=== PATIENT | male | born 1950 | race Caucasian/White ===

== ENCOUNTER → 2016-11-12 | Outpatient (CLI) | payer BC ==
[2016-11-12 16:52] LABS: BASOPHILS # (AUTO) 0.02 10*3/UL; BASOPHILS % (AUTO) 0.4 % (0-1); EOSINOPHILS % (AUTO) 2.7 % (0-8); HEMATOCRIT 42.6 % (42.0-52.0); HEMOGLOBIN 14.7 g/dL (14.0-18.0); IMM GRAN % (AUTO) 0.5 % (0-5); IMM GRAN# (AUTO) 0.03 10*3/UL; LYMPHOCYTES # (AUTO) 0.97 10*3/uL; LYMPHOCYTES % (AUTO) 17.5 % (10-50); MEAN CORPUSCULAR HEMOGLOBIN 31.9 PG (27-31); MEAN CORPUSCULAR HGB CONC 34.5 g/dL (33-37); MEAN PLATELET VOLUME 10.3 FL (7.4-12.2); MONOCYTES # (AUTO) 0.82 10*3/UL (0.3-0.8); MONOCYTES % (AUTO) 14.8 % (5-15); NEUTROPHILS # (AUTO) 3.56 10*3/UL; NEUTROPHILS % (AUTO) 64.1 % (50-80); RDW COEFFICIENT OF VARIATION 13.5 % (11.5-14.5); RED BLOOD COUNT 4.61 10^6/uL (4.70-6.10); WHITE BLOOD COUNT 5.55 10^3/uL (4.8-10.8)
[2016-11-12 16:58] LABS: PLATELET MORPHOLOGY COMMENT NORMAL MORPHOLOGY (NORM)
[2016-11-12 17:05] LABS: ASPARTATE AMINO TRANSFERASE 28 IU/L (21-57); BILIRUBIN,TOTAL 1.1 mg/dL (0.3-1.2); BLOOD UREA NITROGEN 11 mg/dL (7-22); CALCIUM 9.5 mg/dL (8.7-10.7); CHLORIDE 100 meq/L (98-112); EST GLOMERULAR FILTRATION > 60 (>60 ml/min/1.73m(2)); GLUCOSE 87 mg/dL (78-110); POTASSIUM 4.2 meq/L (3.8-5.2); SODIUM 138 meq/L (135-145); TOTAL PROTEIN 6.9 g/dL (6.1-8.0)
== END ==
LOC: LAB 16:37
PROVIDERS: ATTEND Internal Medicine
DX: C85.81 Other specified types of non-Hodgkin lymphoma, lymph nodes of head, face, and neck (principal)
CPT/HCPCS: 36415; 80053; 83615; 85025

== ENCOUNTER → 2017-01-02 | Outpatient (CLI) | payer BC ==
--- NOTE | 2017-01-02 13:22 | EKG ---
[address] [address] Measurements Intervals [place] Rate: 74 P: 63 LA: 165 QRS: -4 QRSD: 103 T: 69 QT: 390 QTc: 417 Interpretive Statements SINUS RHYTHM No previous ECG available for comparison Electronically Signed On [email or web address] 15:08:23 MDT by Juan Luis Easton [email or web address]
== END ==
LOC: EKG 12:48
PROVIDERS: ATTEND Internal Medicine
DX: I10 Essential (primary) hypertension (principal); F17.220 Nicotine dependence, chewing tobacco, uncomplicated
CPT/HCPCS: 93005; 93010